=== PATIENT | male | born 2000 | race Caucasian/White ===

== ENCOUNTER 2020-07-17 13:51 | Emergency (ER) | payer BC ==
[~2020-07-17] VITALS: Ht 177.8 cm; Wt 75.0 kg
[2020-07-17 14:29] VITALS: BP 129/77; TEMP 98.1
[2020-07-17 16:50] VITALS: PULSE 58
== END 2020-07-17 16:51 | disposition home or self-care (01) ==
LOC: COL.ER 13:51
DX: R51.9 Headache, unspecified (principal)